=== PATIENT | male | born 1955 | race Caucasian/White ===

== ENCOUNTER → 2020-10-15 | Outpatient (CLI) | payer MEDICARE ==
[~2020-10-15] MED LIST: AMLO1TAB25 PO; HYDR25TAB PO; METO1TAB32 PO; OMEP1CAP73 PO
== END ==
LOC: M LABSMTC 09:59
PROVIDERS: ATTEND Anesthesiology
DX: Z01.812 Encounter for preprocedural laboratory examination (principal); Z20.828 Contact with and (suspected) exposure to other viral communicable diseases

== ENCOUNTER 2020-10-20 08:53 | Day surgery (SDC) | payer MEDICARE ==
[~2020-10-20] VITALS: Ht 188 cm; Wt 107.5 kg
[~2020-10-20 08:53] MED LIST changes: +NS 1,000 ML IV ONE
[2020-10-20] MEDS ORDERED: LIDOCAINE 2% 100MG/5ML SDV (FOR ANES.) As Ordered ONE (09:48)
[2020-10-20] MEDS ORDERED: propofoL 200 MG/20 ML VIAL As Ordered ONE (09:48)
--- NOTE | 2020-10-20 10:48 | ROOR ---
Patient Name: Chay Pretty Procedure Date: 10/20/2020 10:11 AM Date of : 1955 Age: 65 Room: [facility] Gender: Male Note Status: Finalized Procedure: Colonoscopy Indications: Screening for colorectal malignant neoplasm Providers: Abdi HANSON MD Referring MD: MARIA ELENA BERKOWITZ NP Requesting Provider: Medicines: Monitored Anesthesia Care Complications: No immediate complications. Procedure: Pre-Anesthesia Assessment: - The heart rate, respiratory rate, oxygen saturations, blood pressure, adequacy of pulmonary ventilation, and response to care were monitored throughout the procedure. The Colonoscope was introduced through the anus and advanced to the terminal ileum, with identification of the appendiceal orifice and IC valve. The colonoscopy was performed without difficulty. The patient tolerated the procedure well. The quality of the bowel preparation was good. Findings: The perianal and digital rectal examinations were normal. Three sessile polyps were found in the descending colon and ascending colon. The polyps were diminutive in size. These polyps were removed with a cold snare. Resection and retrieval were complete. Mild sigmoid diverticulosis and small internal hemorrhoids. The exam was otherwise without abnormality on direct and retroflexion views. Impression: - Three diminutive polyps in the descending colon and in the ascending colon, removed with a cold snare. Resected and retrieved. - Mild sigmoid diverticulosis and small internal hemorrhoids. - The examination was otherwise normal on direct and retroflexion views. Recommendation: - Repeat colonoscopy in 3 years for surveillance. Procedure Code(s): --- Professional --- 85294, Colonoscopy, flexible; with removal of tumor(s), polyp(s), or other lesion(s) by snare technique Diagnosis Code(s): --- Professional --- K63.5, Polyp of colon Z12.11, Encounter for screening for malignant neoplasm of colon CPT copyright 2019 [employer]. All rights reserved. The codes documented in this report are preliminary and upon district court bailiff review may be revised to meet current compliance requirements. Abdi Hanson MD Abdi HANSON MD 10/20/2020 10:48:43 AM Electronically signed by Abdi HANSON MD Number of Addenda: 0 Note Initiated On: 10/20/2020 10:11 AM Estimated Blood Loss: Estimated blood loss: none.
[2020-10-20 11:15] VITALS: BP 138/92
== END 2020-10-20 12:10 | disposition home or self-care (01) ==
LOC: M OPP 08:53 → EDUNIT# 10:45 → M OPP 12:10
PROVIDERS: ATTEND Internal Medicine Gastroenterology
DX: Z12.11 Encounter for screening for malignant neoplasm of colon (principal); K63.5 Polyp of colon; K57.30 Diverticulosis of large intestine without perforation or abscess without bleeding; K64.8 Other hemorrhoids

== ENCOUNTER → 2021-02-08 | Outpatient (CLI) | payer MEDICARE, MEDICAID ==
[~2021-02-08] MED LIST changes: +HYDR-3490 PO; -HYDR25TAB PO; -NS 1,000 ML IV ONE
--- NOTE | 2021-02-08 08:54 | REP ---
INDICATION: Stenosis COMPARISON: There are no prior carotid artery images for comparison. TECHNIQUE: Carotid ultrasonography was performed bilaterally FINDINGS: Right: CCA systolic: 80.2 centimeters/second CCA diastolic: 17.0 centimeters/seconds ICA systolic: 56.7 centimeters/second ICA diastolic: 12.0 centimeters/second ICA CCA ratio: 0.71 Left: CCA systolic: 100.7 centimeters/second CCA diastolic: 19.8 centimeters/second ICA systolic: 52.1 centimeters/second ICA diastolic: 11.7 centimeters/second ICA CCA ratio: 0.52 Vertebral artery: Right: Antegrade left: Antegrade Abnormal echogenic material is seen along the carotid arterial adams some of which casts in acoustic shadow consistent with calcific deposition. IMPRESSION: According to the SRU criteria there is less than 50% stenosis of the internal carotid artery bilaterally. This is secondary to both calcified and noncalcified atheromatous plaque formation. <Electronically signed by Maximo Kramer > 02/08/21 [id number]
== END ==
LOC: M RAD 06:42
PROVIDERS: ATTEND Nurse Practitioner Family
DX: I65.23 Occlusion and stenosis of bilateral carotid arteries (principal)

== ENCOUNTER → 2023-08-23 | Outpatient (CLI) | payer MEDICARE, MEDICAID | LOC: M RAD 12:02 | PROVIDERS: ATTEND Nurse Practitioner Family | DX: E04.1 Nontoxic single thyroid nodule (principal); E03.9 Hypothyroidism, unspecified ==

== ENCOUNTER 2024-03-18 07:00 | Day surgery (SDC) | payer MEDICARE, MEDICAID ==
[~2024-03-18] VITALS: Ht 188 cm; Wt 107.5 kg
[~2024-03-18 07:00] MED LIST changes: +IBUP-1114 PO; +NS 1,000 ML IV ONE; +ROSU5TAB40 PO
[2024-03-18] MEDS ORDERED: propofoL 500 MG/50 ML VIAL As Ordered ONE (08:10)
[2024-03-18 08:47] VITALS: TEMP 97.5
[2024-03-18 09:15] VITALS: BP 126/75; O2SAT 95
== END 2024-03-18 09:20 | disposition home or self-care (01) ==
LOC: M OPP 07:00
PROVIDERS: ATTEND Internal Medicine Gastroenterology
DX: Z86.010 Personal history of colon polyps (principal); D12.5 Benign neoplasm of sigmoid colon; K64.8 Other hemorrhoids; K57.30 Diverticulosis of large intestine without perforation or abscess without bleeding; I10 Essential (primary) hypertension; Z79.02 Long term (current) use of antithrombotics/antiplatelets; Z79.1 Long term (current) use of non-steroidal anti-inflammatories (NSAID); Z79.899 Other long term (current) drug therapy

== ENCOUNTER → 2024-04-04 | Outpatient (REF) | payer MEDICARE, MEDICAID ==
[~2024-04-04] MED LIST changes: -NS 1,000 ML IV ONE
[2024-04-04 16:43] LABS: ERYTHROCYTE SEDIMENTATION RATE 17 mm/hr (0-20)
[2024-04-04 17:08] LABS: C REACTIVE PROTEIN QUANTITATIV < 0.40 MG/DL (<1.0)
[2024-04-04 17:09] LABS: CPK CREATINE PHOSPHOKINASE 320 U/L (46-171); IRON (FE) 65 UG/DL (65-175); MAGNESIUM LEVEL 2.3 MG/DL (1.8-2.4); PERCENT SATURATION 16.5 % (19.7-50.0); PHOSPHORUS LEVEL 3.7 MG/DL (2.4-5.1); TOTAL IRON BINDING CAPACITY 395 UG/DL (250-425)
[2024-04-04 17:11] LABS: COMPLEMENT C3 144.9 MG/DL (90.0-170.0); COMPLEMENT C4 26.8 MG/DL (12-36); VITAMIN B12 LEVEL 544 PG/ML (211-911)
[2024-04-04 17:12] LABS: TOTAL 25(OH) VITAMIN D 26.6 NG/ML (20.0-100.0)
[2024-04-04 17:22] LABS: APPEARANCE, URINE CLEAR (CLEAR); BACTERIA, URINE AUTO NEGATIVE (NEGATIVE); BILIRUBIN, URINE AUTO NEGATIVE (NEGATIVE); BLOOD, URINE BLOOD NEGATIVE (NEGATIVE); COLOR, URINE YELLOW (YELLOW); GLUCOSE, URINE (UA) AUTO NEGATIVE (NEGATIVE); KETONE, URINE AUTO NEGATIVE (NEGATIVE); LEUKOCYTE ESTERASE, URINE AUTO NEGATIVE (NEGATIVE); NITRITE, URINE AUTO NEGATIVE (NEGATIVE); PROTEIN, URINE AUTO NEGATIVE (NEGATIVE); RBC, URINE AUTO 0 /HPF (0-3); SPECIFIC GRAVITY URINE AUTO 1.019 (1.002-1.035); SQUAMOUS EPITHELIAL CELL UR AU 0 /HPF (0-6); UROBILINOGEN, URINE AUTO 0.2 mg/dL (0.0-2.0); WBC, URINE AUTO 0 /HPF (0-3)
[2024-04-04 17:31] LABS: TOTAL PROTEIN,RANDOM URINE 7.6 MG/DL (0.0-14.0)
[2024-04-04 17:36] LABS: CREATININE,RANDOM URINE 97.9 MG/DL
[2024-04-04 18:09] LABS: BASO # 0.1 10^3/uL (0.0-0.2); BASO % 0.9 % (0.0-1.0); EOS # 0.2 10^3/uL (0.0-0.5); HEMATOCRIT 48.4 % (42.0-52.0); HEMOGLOBIN 16.2 g/dl (13.5-17.5); LYMPH # 1.9 10^3/uL (1.5-5.0); LYMPH % 26.1 % (24.0-44.0); MEAN CORPUSCULAR HEMOGLOBIN 28.7 pg (27.0-33.0); MEAN CORPUSCULAR HGB CONC 33.5 g/dl (32.0-36.5); MEAN CORPUSCULAR VOLUME 85.7 fl (80.0-96.0); MONO # 0.8 10^3/uL (0.0-0.8); MONO % 10.9 % (2.0-8.0); NEUTROPHILS # 4.5 10^3/uL (1.5-8.5); NEUTROPHILS % 59.8 % (36.0-66.0); PLATELET COUNT, AUTOMATED 256 10^3/uL (150-450); RED BLOOD COUNT 5.65 10^6/uL (4.30-6.10); WHITE BLOOD COUNT 7.4 10^3/uL (4.0-10.0)
== END ==
LOC: M SFHCRHEU 14:38
PROVIDERS: ATTEND Internal Medicine
DX: R76.8 Other specified abnormal immunological findings in serum (principal); M79.10 Myalgia, unspecified site; Z79.899 Other long term (current) drug therapy; M25.50 Pain in unspecified joint

== ENCOUNTER → 2024-10-01 | Outpatient (CLI) | payer MEDICARE, MEDICAID ==
[~2024-10-01] MED LIST changes: -ROSU5TAB40 PO; +ROSU5TAB49 PO
== END ==
LOC: M RAD 11:51
PROVIDERS: ATTEND Nurse Practitioner Family
DX: R91.8 Other nonspecific abnormal finding of lung field (principal)